=== PATIENT | female | born 1995 ===

== ENCOUNTER → 2021-08-01 13:51 | Outpatient (CLI) | payer OTHER, SELFPAY ==
[2021-08-01 20:09] LABS: Add Manual Diff / Slide Review NO; Basophils Absolute Auto 0 /uL (0-100); Basophils Percent Auto 0.7 % (0-2); Eosinophils Absolute Auto 100 /uL (0-450); Eosinophils Percent Auto 1.8 % (2-4); Hematocrit 37.7 % (36-46); Hemoglobin 12.8 g/dL (12.0-16.0); Lymphocytes Absolute Auto 1600 /uL (1100-4500); Lymphocytes Percent Auto 35.4 % (25-40); Mean Corpuscular Hemoglobin 29.9 PG (26-34); Monocytes Absolute Auto 300 /uL (0-900); Neutrophils Absolute Auto 2600 /uL (1500-7000); Neutrophils Percent Auto 56.1 % (50-75); Platelet Count 232 X10^3/uL (150-400); Red Blood Cell Count 4.29 X10^6/uL (4.0-5.2); Red Cell Distribution Width 12.4 % (11.6-14.8); White Blood Cell Count 4.6 X10^3/uL (4.5-11.0)
[2021-08-01 20:12] LABS: Alanine Aminotransferase 13 IU/L (<35); Albumin 4.5 g/dL (3.5-5.0); Albumin Globulin Ratio 1.8 (1.0-2.8); Alkaline Phosphatase 52 U/L (38-126); Aspartate Aminotransferase 21 IU/L (14-36); BUN Creatinine Ratio 17.7 (6-22); Bilirubin Total 0.6 mg/dL (0.2-1.3); Blood Urea Nitrogen 11 mg/dL (7-17); Calcium 9.7 mg/dL (8.4-10.2); Carbon Dioxide 27 mmol/L (22-32); Chloride 102 mmol/L (98-107); Cholesterol 173 mg/dL (140-199); Estimated Glomerular Filt Rate > 60.0 mL/min (>60); Globulin 2.5 g/dL (1.7-4.1); Glucose 78 mg/dL (70-100); HDL Cholesterol 87 mg/dL (40-60); HEMOLYSIS < 15 (0-50); Iron 154 ug/dL (37-170); LDL Cholesterol Calculated 73 mg/dL (<100); Potassium 4.1 mmol/L (3.4-5.1); Sodium 138 mmol/L (137-145); Triglycerides 63 mg/dL (35-150)
[2021-08-01 20:19] LABS: High Sensitivity CRP - Cardiac 0.4 mg/L (1.0-3.0)
[2021-08-01 20:21] LABS: Progesterone, Total 7.34 ng/mL; Vitamin D 25 Hydroxy (D3) 62.3 ng/mL (30.0-100.0)
[2021-08-01 20:23] LABS: Rheumatoid Factor < 8.6 IU/mL (<12.0)
[2021-08-01 20:27] LABS: Percent Iron Saturation 42 % (15-50); Total Iron Binding Capacity 371 ug/dL (265-497); Transferrin 293 mg/dL (206-381)
[2021-08-01 20:31] LABS: Free T3, Triiodothyronine Free 3.54 pg/mL (2.77-5.27); Free T4, Direct Thyroxine 0.94 ng/dL (0.78-2.19)
[2021-08-01 20:44] LABS: Thyroid Stimulating Hormone 1.22 uIU/mL (0.47-4.68)
[2021-08-01 20:46] LABS: Erythrocyte Sedimentation Rate 5 MM/HR (0-20)
[2021-08-02 22:26] LABS: Thyroid Peroxidase Antibodies <8 IU/mL (0-34)
[2021-08-03 18:36] LABS: Anti Thyroglobulin Antibody <1.0 IU/mL (0.0-0.9)
[2021-08-04 20:32] LABS: ANA Screen, IFA Positive (.)
[2021-08-07 10:09] LABS: Estrogen 230 pg/mL (.)
[2021-08-07 15:08] LABS: Triiodothyronine T3 Reverse 16.2 ng/dL (9.2-24.1)
== END ==
PROVIDERS: Referring Provider Naturopath; Visit Provider Naturopath
DX: E03.9 Hypothyroidism, unspecified (principal); E34.9 Endocrine disorder, unspecified; M79.7 Fibromyalgia; R53.81 Other malaise; Z00.00 Encounter for general adult medical examination without abnormal findings; R53.83 Other fatigue
CPT/HCPCS: 80053; 80061; 82306; 82627; 82672; 83540; 83550; 84144; 84439; 84443; 84481; 84482; 85025; 85651; 86038; 86140; 86376; 86430; 86800

== ENCOUNTER → 2022-02-18 13:33 | Outpatient (CLI) | payer OTHER, SELFPAY ==
[2022-02-25 19:08] LABS: SARS CoV19 IgA Negative (Negative)
[2022-03-04 13:45] LABS: SARS CoV19 IgG <13
== END ==
PROVIDERS: PCP Nurse Practitioner; Visit Provider Nurse Practitioner
DX: R43.0 Anosmia (principal); R43.2 Parageusia; Z20.822 Contact with and (suspected) exposure to COVID-19
CPT/HCPCS: 86769

== ENCOUNTER → 2023-12-24 10:35 | Outpatient (CLI) | payer SELFPAY ==
[2023-12-24 19:18] LABS: Hemoglobin A1C% w Est Avg Glu 4.9 % (4.0-6.0)
[2023-12-26 04:36] LABS: Homocysteine 6.7 umol/L (0.0-14.5)
[2023-12-30 01:15] LABS: Methylmalonic Acid,Serum 85 nmol/L (0-378)
== END ==
PROVIDERS: Naturopath; PCP Nurse Practitioner
DX: K59.00 Constipation, unspecified (principal); R53.82 Chronic fatigue, unspecified; Z83.3 Family history of diabetes mellitus; N92.6 Irregular menstruation, unspecified; Z82.49 Family history of ischemic heart disease and other diseases of the circulatory system; R68.89 Other general symptoms and signs
CPT/HCPCS: 83036; 83090; 83921

== ENCOUNTER → 2024-06-07 15:55 | Outpatient (CLI) | payer BC, SELFPAY | PROVIDERS: PCP Nurse Practitioner; Visit Provider Physician Assistant | DX: R30.0 Dysuria (principal) | CPT/HCPCS: 87086 ==

== ENCOUNTER → 2025-05-01 10:00 | Outpatient (CLI) | payer OTHER, SELFPAY | PROVIDERS: PCP Family Medicine; Visit Provider Physician Assistant | DX: Z11.3 Encounter for screening for infections with a predominantly sexual mode of transmission (principal) | CPT/HCPCS: 87480; 87510; 87660; 87661; 87798; 87801 ==

== ENCOUNTER → 2025-05-02 11:38 | Outpatient (CLI) | payer OTHER, SELFPAY ==
[2025-05-02 19:52] LABS: Alanine Aminotransferase 11 IU/L (<35); Albumin 4.3 g/dL (3.5-5.0); Albumin Globulin Ratio 1.7 (1.0-2.8); Alkaline Phosphatase 52 U/L (38-126); Blood Urea Nitrogen 13 mg/dL (7-17); Calcium 9.4 mg/dL (8.4-10.2); Carbon Dioxide 28 mmol/L (22-32); Chloride 106 mmol/L (98-107); Estimated Glomerular Filt Rate > 60 mL/min (>60); Globulin 2.6 g/dL (1.7-4.1); Glucose 106 mg/dL (70-99); HEMOLYSIS < 15 (0-50); Potassium 4.2 mmol/L (3.4-5.1); Sodium 140 mmol/L (137-145); Total Protein 6.9 g/dL (6.3-8.2)
[2025-05-02 20:24] LABS: Hepatitis B Surface Antigen NEGATIVE s/c (NEGATIVE)
[2025-05-02 20:41] LABS: HIV 1 & 2 Ab/Ag 4th Gen Combo NEGATIVE (NEGATIVE); Hep C Virus Ab w/Reflex Quant NEGATIVE s/c (NEGATIVE)
[2025-05-04 00:41] LABS: HSV 1 IGG Non Reactive (Non Reactive); HSV 2 IGG Non Reactive (Non Reactive)
== END ==
PROVIDERS: PCP Family Medicine; Visit Provider Physician Assistant
DX: Z11.3 Encounter for screening for infections with a predominantly sexual mode of transmission (principal); Z13.1 Encounter for screening for diabetes mellitus; Z83.3 Family history of diabetes mellitus
CPT/HCPCS: 80053; 86592; 86695; 86696; 86803; 87340; 87389

== ENCOUNTER → 2025-05-10 14:00 | Outpatient (CLI) | payer OTHER, SELFPAY ==
[2025-05-10 20:57] LABS: Clostridium difficile toxin AB Not Detected (Not Detect); Enteroaggregative E.coli Not Detected (Not Detect); Enteropathogenic E.coli Not Detected (Not Detect); Enterotoxigenic E.coli It/st Not Detected (Not Detect); Plesiomonsa shigelloides Not Detected (Not Detect); Shiga-like toxin-prod E.coli Not Detected (Not Detect)
== END ==
PROVIDERS: PCP Physician Assistant Medical; Visit Provider Physician Assistant Medical
DX: K92.1 Melena (principal)
CPT/HCPCS: 82274; 87507